=== PATIENT | female | born 1960 | race Caucasian/White ===

== ENCOUNTER 2016-06-25 10:39 | Emergency (ER) | payer BC ==
[~2016-06-25] VITALS: Ht 167.6 cm; Wt 75.9 kg
[2016-06-25 10:59] VITALS: BP 125/69
[2016-06-25] MEDS ORDERED: DILAUDID2 MG PO (11:09)
[2016-06-25] MEDS ORDERED: NORCO 7.5/321 TABLET PO (13:34)
[2016-06-25] MEDS ORDERED: ZOFRAN ODT4 MG PO (13:34)
[2016-06-25] MEDS ORDERED: STOOL SOFTENER240 MG PO (13:36)
== END 2016-06-25 14:04 | disposition home or self-care (01) ==
LOC: EME 10:39
DX: G89.18 Other acute postprocedural pain (principal); Z98.890 Other specified postprocedural states; Z85.3 Personal history of malignant neoplasm of breast; Z90.13 Acquired absence of bilateral breasts and nipples; Z88.6 Allergy status to analgesic agent
CPT/HCPCS: 99281; 99284; J1170

== ENCOUNTER 2016-12-04 07:44 | Day surgery (SDC) | payer BC ==
[~2016-12-04] VITALS: Ht 167.6 cm; Wt 73.9 kg
[~2016-12-04 07:44] MED LIST: DILAUDID2 MG PO; NORCO 7.5/321 TABLET PO; STOOL SOFTENER240 MG PO; ZOFRAN ODT4 MG PO
[2016-12-04 08:18] VITALS: BP 112/70
[2016-12-04 12:00] VITALS: BP 108/83
[2016-12-04 13:06] VITALS: BP 105/64
== END 2016-12-04 13:50 | disposition home or self-care (01) ==
LOC: SDC 07:44
PROC: 0UDB8ZX Extraction of Endometrium, Via Natural or Artificial Opening Endoscopic, Diagnostic (ICD-10-PCS; principal; 2016-12-04)
DX: N95.0 Postmenopausal bleeding (principal); E78.5 Hyperlipidemia, unspecified; Z85.3 Personal history of malignant neoplasm of breast; Z82.49 Family history of ischemic heart disease and other diseases of the circulatory system; Z80.3 Family history of malignant neoplasm of breast
CPT/HCPCS: 88305; J0131; J1100; J1885; J2250; J2405; J3010